=== PATIENT | female | born 2000 | race Caucasian/White ===

== ENCOUNTER 2021-01-29 13:40 | Emergency (ER) | payer BC ==
[2021-01-29] MEDS ORDERED: Bacitracin Oint 1 GM U/D Packet TOP ONE (16:27)
[2021-01-29] MEDS ORDERED: Diphtheria,Pertussis(Acell),Tetanus Vaccine 0.5 ML Syringe IM ONE (16:28)
--- NOTE | 2021-01-29 16:50 | EDM.PDOC ---
ED HPI GENERAL MEDICAL PROBLEM - General Chief Complaint: Laceration Stated Complaint: CUT LEFT HAND Time Seen by Provider: 01/29/21 16:30 Source of Information: Reports: Patient, Family History Limitations: Reports: No Limitations - History of Present Illness INITIAL COMMENTS - FREE TEXT/NARRATIVE: 20-year-old female with a laceration on her left hand. She was cutting and asael cado when the knife slipped and cut her on the radial side at the base of the index finger. She has a 3 cm curved laceration, distal sensation is intact. No other injury. She is due for tetanus booster. Onset: Sudden Duration: Hour(s): (3 hours ago) Location: Reports: Upper Extremity, Left Associated Symptoms: Reports: No Other Symptoms Left Hand Pain Score (Numeric/FACES): 5 - Related Data Allergies Allergy/AdvReac Type Severity Reaction Status Date / Time No Known Allergies Allergy Verified 01/29/21 15:21 Home Meds: Home Meds NK [No Known Home Meds] 01/29/21 [History] Past Medical History HEENT History: Reports: Impaired Vision Musculoskeletal History: Reports: Fracture Neurological History: Reports: Concussion Social & Family History - Tobacco Use Tobacco Use Status *Q: Never Tobacco User - Caffeine Use Caffeine Use: Reports: Coffee - Recreational Drug Use Recreational Drug Use: No ED ROS GENERAL - Review of Systems Review Of Systems: See Below Constitutional: Denies: Fever, Chills HEENT: Reports: No Symptoms Respiratory: Reports: No Symptoms GI/Abdominal: Reports: No Symptoms Psychiatric: Reports: No Symptoms ED EXAM, SKIN/RASH Exam: See Below Exam Limited By: No Limitations General Appearance: Alert, No Apparent Distress Respiratory/Chest: No Respiratory Distress Extremities: Other (Exam is otherwise limited to the left hand. Patient has a curved laceration on the lateral aspect of the base of the index finger radial side. Laceration length is 3 cm) Neurological: Alert, Oriented Course - Vital Signs Last Recorded V/S: Last Vital Signs Temp 98 F 01/29/21 15:20 Pulse 56 L 01/29/21 15:20 Resp 18 01/29/21 15:20 BP 134/81 01/29/21 15:20 Pulse Ox 99 01/29/21 15:20 - Orders/Labs/Meds Meds: Medications Discontinued Medications Generic Name Dose Route Start Last Admin Trade Name Freq PRN Reason Stop Dose Admin Bacitracin 1 dose 01/29/21 16:27 01/29/21 16:57 Bacitracin Oint 1 Gm U/D Packet TOP 01/29/21 16:28 1 dose ONETIME ONE Administration Diphtheria/Tetanus/Acell Pertussis 0.5 ml 01/29/21 16:28 01/29/21 16:58 Diphtheria,Pertussis(Acell),Tetanus Vaccine 0.5 Ml Syringe IM 01/29/21 16:29 0.5 ml .ONCE ONE Administration Lidocaine HCl 5 ml 01/29/21 16:27 01/29/21 16:58 Lidocaine 1% 5 Ml Sdv INJECT 01/29/21 16:28 5 ml ONETIME ONE Administration - Re-Assessments/Exams Free Text/Narrative Re-Assessment/Exam: 01/29/21 16:49 Wound was infiltrated with 1% lidocaine, washed thoroughly with saline and closed with four 4-0 Ethilon sutures. Topical bacitracin and a Tdap booster was given. Sutures can be removed in 8 days. Departure - Departure Time of Disposition: 17:11 Disposition: Home, Self-Care 01 Clinical Impression: Laceration of left hand Qualifiers: Encounter type: initial encounter Foreign body presence: without foreign body Qualified Code(s): S61.412A - Laceration without foreign body of left hand, initial encounter - Discharge Information Instructions: Laceration Care, Adult Referrals: PCP,None [Primary Care Provider] - Forms: ED Department Discharge Care Plan Goals: Keep wound covered and clean while healing. Sutures can be removed in 8 days, recheck sooner if concerns of infection or not healing satisfactorily. Sepsis Event Note (ED) - Evaluation Sepsis Screening Result: No Definite Risk - Focused Exam Vital Signs: Vital Signs Temp Pulse Resp BP Pulse Ox 01/29/21 15:20 98 F 56 L 18 134/81 99 01/29/21 15:10 98 F 56 L 18 134/81 99
== END 2021-01-29 17:11 | disposition home or self-care (01) ==
LOC: JP.ED 13:40
DX: S61.211A Laceration without foreign body of left index finger without damage to nail, initial encounter (principal); Z23 Encounter for immunization; W26.0XXA Contact with knife, initial encounter
CPT/HCPCS: 12002; 90471; 90715; 99282-25